=== PATIENT | male | born 1990 | race African-American/Black ===

== ENCOUNTER 2018-11-11 17:15 | Emergency (ER) | payer MEDICAID, OTHER ==
[~2018-11-11] VITALS: Ht 177.8 cm; Wt 61.7 kg
[2018-11-11 17:34] VITALS: BP 114/54
[2018-11-11] MEDS ORDERED: IBUPROFEN 800 MG TAB PO ONE (17:45)
[2018-11-11] MEDS ORDERED: cefTRIAXone 1GM/50ML D5W 50 ML IV ONE (17:45)
[2018-11-11] MEDS ORDERED: LIDOCAINE 1% HCL (LOCAL ANESTH.) INJ 20ML MDV IJ ONE (17:45)
[2018-11-11] MEDS ORDERED: cefTRIAXone SOD 1,000 MG VL IM ONE (17:45)
== END 2018-11-11 18:09 | disposition home or self-care (01) ==
LOC: ER 17:20
DX: L03.116 Cellulitis of left lower limb (principal); Z88.5 Allergy status to narcotic agent; Z88.0 Allergy status to penicillin
CPT/HCPCS: 96372; 99283; J0696; J2001

== ENCOUNTER 2019-01-09 18:17 | Emergency (ER) | payer MEDICAID ==
[~2019-01-09] VITALS: Ht 157.5 cm; Wt 62.1 kg
[2019-01-09 18:22] VITALS: BP 112/64
[2019-01-09] MEDS: traMADol HCL 50 MG TAB PO ONE (21:06)
== END 2019-01-09 21:20 | disposition home or self-care (01) ==
LOC: ER 18:17
DX: M54.6 Pain in thoracic spine (principal); M79.18 Myalgia, other site; Z88.0 Allergy status to penicillin; Z88.6 Allergy status to analgesic agent
CPT/HCPCS: 72070

== ENCOUNTER 2019-03-28 07:32 | Emergency (ER) | payer MEDICAID ==
[~2019-03-28] VITALS: Ht 177.8 cm; Wt 62.1 kg
[2019-03-28 07:40] VITALS: BP 117/55
[2019-03-28] MEDS ORDERED: EPINEPHrine HCL 1 MG/1 ML AMP SC ONE (08:00)
[2019-03-28] MEDS ORDERED: methylPREDNISolone SOD SUCC 125 MG/2 ML VL IM ONE (08:00)
== END 2019-03-28 08:31 | disposition home or self-care (01) ==
LOC: ER 07:32
DX: L50.0 Allergic urticaria (principal); Z88.0 Allergy status to penicillin; Z88.6 Allergy status to analgesic agent
CPT/HCPCS: 96372; 99283; J0171; J2930

== ENCOUNTER 2019-04-11 12:35 | Emergency (ER) | payer SELFPAY ==
[~2019-04-11] VITALS: Ht 180.3 cm; Wt 62.1 kg
[2019-04-11 13:11] VITALS: BP 121/70
[2019-04-11] MEDS ORDERED: EPINEPHrine HCL 1 MG/1 ML AMP SC ONE (13:45)
[2019-04-11] MEDS ORDERED: diphenhdrAMINE HCL 50 MG/1 ML VL IM ONE (13:45)
== END 2019-04-11 14:12 | disposition home or self-care (01) ==
LOC: ER 12:35 → EDUNIT# 12:35 → ER 14:12
DX: T78.40XA Allergy, unspecified, initial encounter (principal); X58.XXXA Exposure to other specified factors, initial encounter; Z88.0 Allergy status to penicillin; Z88.6 Allergy status to analgesic agent; Z91.018 Allergy to other foods
CPT/HCPCS: 96372; 99283; J0171; J1200